=== PATIENT | male | born 1955 | race Caucasian/White ===

== ENCOUNTER → 2019-05-29 11:11 | Outpatient (CLI) | payer MEDICARE, OTHER, SELFPAY ==
--- NOTE | 2019-05-29 11:26 | XR_ITS ---
PROCEDURE: XR CHEST 2V CLINICAL HISTORY: SOB, CP, TOBACCO USE COMPARISON: No exams were available for comparison FINDINGS: The cardiomediastinal silhouette and pulmonary vascularity are within normal limits.There is an ill-defined subtle area of increased density in the left midlung overlying the 4th rib. This measures approximately 2 cm. The remaining lungs are clear. There are mild degenerative changes in the thoracic spine. IMPRESSION: Ill-defined opacity in the left mid lung. This could be due to an area of pneumonia or an ill-defined pulmonary nodule/mass. Suggest chest CT for further evaluation. Dictated by: Maximo An MD 05/29/2019 21:34 Signed by: <Electronically signed by Maximo An MD in [place]> 05/29/2019 21:34
== END ==
PROVIDERS: PCP Nurse Practitioner Family; Visit Provider Internal Medicine
DX: R07.9 Chest pain, unspecified (principal); R06.02 Shortness of breath; Z72.0 Tobacco use
CPT/HCPCS: 71046

== ENCOUNTER → 2019-06-03 06:24 | Outpatient (CLI) | payer MEDICARE, OTHER, SELFPAY ==
--- NOTE | 2019-06-03 | CA_ITS ---
APPROVED REPORT Exam: Pharmacologic Technologist: Stephanie Norris, Ht: 5 ft 7 in Wt: 210 lbs BSA: 2.07 m2 HR: 64 bpm BP: 98/53 mmHg Rhythm: sinus Indications: Chest pain, Shortness of Air Medical History Medical History: Diabetes, HTN, Hyperlipidemia Medications: Furosemide (LASIX),,,,, Gabapentin,,,,, Losartan,,,,, Glipizide,,,,, Acetaminophen,,,,, BisOPROLOL,,,,, Sertraline,,,,, OmeGA 3,,,,, Sitagliptin,,,,, Rpinirole,,,,, Levetiraetam,,,,, Allergies: No known drug allergies Cardiac Risk Factors: HTN, Hyperlipidemia, Diabetes (insulin), FHX of CAD, Smoking Stress Test Details Test: LEXISCAN HR Resting HR: 63 bpm Max Heart Rate (APMHR): 155 bpm Max HR Achieved: 90 bpm Target HR (85% APMHR): 131 bpm % of APMHR: 58 Recovery HR: 76 bpm HR response to stress: Normal HR response to stress BP Resting BP: 98.0/53 mmHg Max BP: 116/64 mmHg Recovery BP: 109.0/61.0 mmHg ECG Resting ECG: sinus Clinical Reason for Termination: Completed protocol Highest Stage Achieved: Exercise capacity: 1.0 METs Stress ECG Conclusion denies chest pain : reports shortness of breath at peak - resolved in recovery. Occasional PVC. Less than 1.5mm ST depression. Images to follow. Electronically signed by : Victoriano Pham, 06/12/2019 11:43:11
--- NOTE | 2019-06-03 06:27 | CA_ITS ---
FORM[facility] RADIOLOGICAL CONSULTATION Patient Name : CRYS POWERS X-RAY # : [id number] Physician: BEBE HOUSTON AGE: 63Y : 1955 00:00:00 ( M ) Exam : CA ECHO DOPPLER COMPLETE ACC # : [id number] Study Date : 06/03/2019 06:57:26 Patient Class : O FINAL REPORT CLINICAL DATA: FINDINGS: IMPRESSION: Dictated by Genia Maya at 06/05/2019 12:50:43 PM Transcribed by at
--- NOTE | 2019-06-03 07:00 | CT_ITS ---
PROCEDURE: CT CHEST W CON CLINICAL HISTORY: abn cxr/dyspnea Dyspnea, possible mass in the left upper lobe versus pneumonia abnormal chest x-ray COMPARISON: XR CHEST 2V from 05/29/2019 TECHNIQUE: 75 mL Optiray 350 Axial images obtained with sagittal and coronal reformats. All CT scans at the facility use one or more dose reduction, viz: automated exposure control, ma/kV adjustment per patient size (including targeted exams where dose is matched to indication, i.e. head), or iterative reconstruction technique. FINDINGS: There are scattered small nodes in the axilla. No mediastinal or hilar mass. There are few small mediastinal lymph nodes but no dominant adenopathy. There is bilateral gynecomastia. There is a 8 x 4 mm noncalcified nodule in the right upper lobe image number 19. Calcified granuloma is present in the superior segment of the right lower lobe. Small fissural nodule is present on the left superiorly. No suspicious nodule is evident on the left. Previously noted radiographic abnormality may have been due to the overlying gynecomastia. No acute bony findings. Upper abdominal images show fatty liver. IMPRESSION: 1. 8 x 4 mm noncalcified nodule right upper lobe. Recommend six-month follow-up 2. Previously noted abnormality in the left upper lobe may have been due to overlying gynecomastia. No suspicious nodule on the left. Dictated by: Maximo An MD 06/05/2019 06:48 Signed by: <Electronically signed by Maximo An MD in [place]> 06/05/2019 06:48
--- NOTE | 2019-06-03 07:00 | NM_ITS ---
APPROVED REPORT Exam: Nuclear Stress Test NM EXAM: Myocardial Perfusion REST/STRESS Imaging Protocol: Rest Tc-99m/Stress Tc-99m 1 day Resting Data Rest SPECT myocardial perfusion imaging was performed in supine position 30 minutes following the intravenous injection of 10.32 mCi of TC99 Time of rest injection: 0825 Administration Route: IV Administration Site: Left AC Pharmacologic Stress Pharmacologic stress test was performed by injecting Regadenoson 0.4 mg IV push followed by the intravenous injection of 30.9 mCi of TC99 Time of stress injection: 0945 Administration Route: IV Administration Site: Left AC Gated Stress SPECT was performed 45 minutes after stress injection. The images were gated to evaluate regional wall motion and calculate left ventricular ejection fraction. Nuclear Conclusion Uniform myocardial activity for stress and rest. Gated images calculate an ejection fraction of 70% with normal wall motion No scintigraphic evidence of Lexiscan induced myocardial ischemia with slightly hyperdynamic ejection fraction and hyperdynamic wall motion Electronically signed by : Victoriano Pham, 06/07/2019 13:32:45
--- NOTE | 2019-06-03 08:34 | HMH.ITSHM ---
Current Home Medications as stated by this patient Samy Menard or guest service representative. []SITAGLIPTIN SERTRALINE ROPINIROLE OMEGA 3 LOSARTAN LEVETIRACETAM GLIPIZIDE GABAPENTIN FUROSEMIDE BISOPROLOL ACETAMINOPHEN
== END ==
PROVIDERS: PCP Nurse Practitioner Family; Visit Provider Internal Medicine
DX: F17.200 Nicotine dependence, unspecified, uncomplicated (principal); I11.0 Hypertensive heart disease with heart failure; I27.20 Pulmonary hypertension, unspecified; I50.32 Chronic diastolic (congestive) heart failure; I87.2 Venous insufficiency (chronic) (peripheral); Q24.5 Malformation of coronary vessels; R00.2 Palpitations; R06.00 Dyspnea, unspecified; R93.89 Abnormal findings on diagnostic imaging of other specified body structures; R07.9 Chest pain, unspecified
CPT/HCPCS: 71260; 78452; 93017; 93306; 94060; 94640; 94726; 94729; A9502; J2785

== ENCOUNTER → 2023-08-22 13:02 | Outpatient (CLI) | payer MEDICARE, MEDICAID, SELFPAY ==
--- NOTE | 2023-08-22 13:04 | CA_ITS ---
APPROVED REPORT EXAM: Comprehensive 2D, Doppler, and color-flow Echocardiogram Set Up Inspector: Agueda Babin RVT Ht: 5 ft 7 in Wt: 207lbs BSA: 2.05 BP: 129/69 mmHg Indications: SOA,CHF,PHTN,COPD,PALPS,SMOKER,MYOCARDIAL BRIDGE,DM,HTN,EDEMA,HLD,HX BRAIN CA TDS-PT SCANNED UPRIGHT IN W/C 2D Dimensions LVOT 2.20 cm (M/F) 1.5-2.5 M-Mode Dimensions RVDd 3.36 cm (0.9-2.6) LA Diam 3.81 cm (1.9-4.0) LVDd 4.55 cm (3.5-5.7) Ao Diam 3.09 cm (2.0-3.7) LVDs 3.27 cm (3.5-5.7) IVSd 1.28 cm (0.6-1.1) PWd 0.98 cm (0.6-1.1) EF (Teich) 54.50% FS 28.10% EDV (Teich) 94.90 mL ESV (Teich) 43.20 mL LV Diastology E Decel Time 227.00 (160-240 msec) E/A Ratio 0.8 MED E' 6.70 (< 7 cm/sec) E'/MED E' Ratio 8.12 (>14) LAT E' 5.50 (<10 cm/sec) E/LAT E' Ratio 9.89 (>14) Aortic Valve LVOT Max 86.00 (70-110 cm/s) LVOT VTI 17.95 cm AoV Peak Efraín. 112.00 (50-130 cm/s) AO Peak GR. 5.00 mmHg AO Mean GR. 2.80 (<5 mmHg) AO VTI 21.58 (18-25 cm) ROSS (VTI) 3.16 (2.5-4.5 cm2) Mitral Valve MV E Max Efraín. 54.00 (40-130 cm/s) MV A Velocity 66.00 (40-130 cm/s) E/A Ratio 0.83 MV Decel. Time 227.00 (160-240 ms) MV PHT 66.00 ms Pulmonary Valve PV Peak Velocity 82.00 (50-150 cm/s) Tricuspid Valve TR P. Velocity 196.00 cm/s RAP Estimate 10.00 mmHg RVSP 25.40 mmHg Left Ventricle The left ventricle is normal size. The left ventricular systolic function is normal. The left ventricular ejection fraction is within the normal range. There is increased LV wall thickness. Asynchronous septum is present. Diastolic function is indeterminate. LVEF is 55%. Right Ventricle The right ventricle is mildly dilated. The right ventricular systolic function is normal. Atria The left atrium size is normal. The right atrium size is normal. There is no Doppler evidence of interatrial shunt. Aortic Valve The aortic valve is mildly thickened. There is no aortic valvular stenosis. Trace aortic regurgitation. Mitral Valve The mitral valve leaflets are mildly thickened. No evidence of mitral valve stenosis. Trace mitral regurgitation. Tricuspid Valve Tricuspid valve leaflets are thin and pliable. HPI trace regurgitation. RVSP is normal. Pulmonic Valve The pulmonary valve is normal in structure. Trace pulmonic regurgitation. Great Vessels The aortic root is normal in size. The ascending aorta is normal in size. IVC is normal in size and collapses >50% with inspiration. Pericardium There is no pericardial effusion. Other Information Study Quality: Technically Difficult Conclusion Technically difficult study due to poor acoustic windows. Normal biventricular systolic function. Mildly dilated RV. Asynchronous septum. No significant valvular stenosis or regurgitation. Electronically signed by : Carmen Leon MD 08/25/2023 19:32:10
== END ==
LOC: RT 13:02
PROVIDERS: PCP Nurse Practitioner Family; Visit Provider Internal Medicine
DX: F17.200 Nicotine dependence, unspecified, uncomplicated (principal); I11.0 Hypertensive heart disease with heart failure; I27.20 Pulmonary hypertension, unspecified; I50.30 Unspecified diastolic (congestive) heart failure; Q24.5 Malformation of coronary vessels; R00.2 Palpitations; R06.00 Dyspnea, unspecified
CPT/HCPCS: 93306